=== PATIENT | female | born 1955 | race Caucasian/White ===

== ENCOUNTER 2019-12-18 13:49 | Observation (INO) ==
--- NOTE | 2019-12-18 14:41 | ERNOTE ---
Lower Extremity HPI - Narrative Date of Service: 12/18/19 - General Lower Extremities Pain: hip: left, other: bilateral - posterior head Time Seen by Provider: 12/18/19 14:06 Source: patient, family, EMS Exam Limitations: clinical condition - Immun/Allergies/Home Medications Immunizations: IMMUNIZATION HX Immunizations Up to Date Yes History of Influenza Vaccine No Hx Pneumococcal Vaccination No Allergies/Adverse Reactions: Allergies Allergy/AdvReac Type Severity Reaction Status Date / Time No Known Allergies Allergy Verified 12/18/19 18:29 Home Medications: HOME MEDICATIONS hydrOXYzine PAMOATE [Vistaril] 25 mg PO TID PRN #30 cap 05/02/19 [Last Taken Unknown] Albuterol Sulfate [Albuterol Sulfate 2.5 MG/0.5ML] 1 vial INHALATION Q4H PRN 09/18/19 [Last Taken Unknown] Cholecalciferol (Vitamin D3) [Vitamin D3] 1,000 units PO DAILY 09/18/19 [Last Taken Unknown] Lorazepam 0.5 mg PO PRN 09/18/19 [Last Taken Unknown] Metoprolol Tartrate [Lopressor] 12.5 mg PO DAILY 09/18/19 [Last Taken Unknown] Omeprazole 20 mg PO DAILY 09/18/19 [Last Taken Unknown] Ondansetron [Zofran Odt] 4 mg PO Q8H PRN 09/18/19 [Last Taken Unknown] Oxybutynin Chloride [Ditropan] 5 mg PO BID 09/18/19 [Last Taken Unknown] Sertraline HCl [Zoloft] 100 mg PO DAILY 09/18/19 [Last Taken Unknown] Topiramate [Topamax] 25 mg PO BID 09/18/19 [Last Taken Unknown] Baclofen 10 mg PO TID 11/25/19 [Last Taken Unknown] oxyCODONE HCL [Oxycodone HCl] 5 mg PO Q4H PRN 11/25/19 [Last Taken Unknown] Clindamycin HCl [Cleocin HCl] 300 mg PO QID 10 Days #40 cap 12/17/19 [Last Taken Unknown] Gabapentin 100 mg PO TID 12/18/19 [Last Taken Unknown] Mupirocin 1 gm TOPICAL BID 12/18/19 [Last Taken Unknown] SUMAtriptan SUCCINATE [Imitrex] 50 mg PO DAILY PRN 12/18/19 [Last Taken Unknown] Tamsulosin HCl [Flomax] 0.4 mg PO DAILY 12/18/19 [Last Taken Unknown] Zolpidem Tartrate 5 mg PO HS PRN 12/18/19 [Last Taken Unknown] - Pain Score Pain Score #1 Pain Score: 7 - History of Present Illness Narrative: The patient is a 64 year old male who presents for fall which occurred potentially around 0300 this am. There are associated symptoms of left hip pain and posterior head contusion. The patient reports pain to left hip and posterior head, 01/03. There are no alleviating factors. There are aggravating factors of activity. Previous treatments have included: none. The past medical history includes: COPD and HTN. The social history is positive for current tobacco use. The patient has had no known ill contacts. Patient states she believes sometime around 0200 or 0300 this am was outside to smoke and lost her balance falling and hitting head. Patient denies LOC but incident was unwitnessed. Patient has been having frequent recurrent falls. Daughter states she was attempting to contact patient to bathe her prepping for her upcoming surgery on at [facility] when the patient did not answer. Daughter states she had to contact the apartment landlord to allow her into the apartment. Daughter states she had difficulty waking her mother from sleep and was covered in blood from head wound. Daughter states that she has been aiding to manage patient's medication but after initial dosing patient takes them independently. Patient was evaluated yesterday for right posterior thigh cellulitis and treated with Clindamycin. Area appears improved with decreased overall erythema and indurated area. Patient remains to have two small pustules. Review of Systems - Review of Systems Constitutional: Present: fatigue, malaise. Absent: fever, chills EYE: Present: no symptoms reported ENT: Present: no symptoms reported Respiratory: Present: no symptoms reported. Absent: shortness of breath, cough Cardiology: Present: no symptoms reported. Absent: chest pain Gastrointestinal/Abdominal: Present: no symptoms reported. Absent: vomiting, diarrhea Genitourinary: Present: no symptoms reported. Absent: dysuria Musculoskeletal: Present: joint pain. Absent: neck pain Skin: Present: change in color Neurological: Present: weakness. Absent: dizziness/light-headedness All Other Systems: All systems neg except as marked Medical History (Last Reviewed 12/18/19 @ 14:23 by SHANTEL Ash) COPD (chronic obstructive pulmonary disease) HTN (hypertension) History of shoulder fracture Surgical History: Surgical History (Last Reviewed 12/18/19 @ 14:23 by SHANTEL Ash) History of hip replacement, total Hx of hysterectomy Family History: Family History (Last Reviewed 12/18/19 @ 14:23 by SHANTEL Ash) Other No pertinent family history Social History: (Last Reviewed 12/18/19 @ 14:23 by SHANTEL Ash) Tobacco: Smoking Status: Current every day smoker Smoking cigarettes per day: 20 Alcohol: alcohol intake frequency: holiday/special occasion Substance Use: substance use type: marijuana details: Medical use Physical Exam - Physical Exam General Appearance: Present: wd/wn, alert, moderate distress, sleeping/easy to arouse - sedate consistent with medication administered by EMS [employer] Head Exam: Present: lacerations - 4cm linear vertical laceration to posterior head, patient has had previous open laceration to same area from recent falls, tenderness Eye Exam: Normal inspection: bilateral, PERRL: bilateral, EOMI: bilateral Ears, Nose, Throat: Present: dry mucous membranes Neck: Present: normal inspection, nontender, full range of motion Respiratory: Present: no respiratory distress, normal breath sounds, no accessory muscle use, chest nontender, lungs clear Cardiovascular/Chest: Present: regular rate, rhythm, no murmur Peripheral Pulses: N=norm/S=strong/W=weak/B=bound/A=absent: Dorsalis-pedis (R): Normal, Dorsalis-pedis (L): Normal Gastrointestinal/Abdominal: Present: normal bowel sounds, nontender, nondistended, soft, no organomegaly Extremity Exam: Present: decreased range of motion - left hip, abnormal angulation with shortening and internal rotation , bony tenderness - left hip, other - chronic dislocation to left hip. Absent: extremity edema Neurological Exam: Present: alert, oriented - x3, normal mood/affect, no motor/sensory deficits, disoriented to situation - disoriented or difficult to recall timeframe of events Skin Exam: Present: normal color, warm/dry, other - erythema which is court interpreter pink from yesterday to right posterior thigh, area of induration decreased (3 x 3 cm) two pustules Progress - Date and Time Seen: Date and Time: 12/18/19 15:49 Attempt to contact [facility] to facilitate follow up care and inform patients orthopedic surgeon regarding recent falls as well as antibiotic treatment associated with recent cellulitis. Do not feel that repeat labs are necessary at this time due to patients evaluation yesterday with improvement to cellulitis on exam and patient having decreased focal pain to right posterior thigh. Patient also remains afebrile and normotensive. 12/18/19 15:[address] Amador Su. Does not feel that they have any options for admission at [facility] for preop and doctor has been updated regarding CT head findings, patient's frequent falls and cellulitis treatment. Discussed case with Ani Moreno, case management, will follow up with patient's daughter and notify of plan of care. 12/18/19 16:10 Patient previously had [facility] care but patient was discharged last week. Will discuss with daughter regarding care until surgery at [facility] is scheduled on . 12/18/19 16:52 Will admit for observation due to abnormal CT findings with frequent falls and head trauma for continued monitoring and neuro checks to ensure no decline. Will also continue treatment for right posterior thigh cellulitis. 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 Daughter states she will pick patient up and stay with her tomorrow for surgery . Discussed case with and ok with plan. - Results and Orders Patient's Lab Results:: I have reviewed the patient's lab results. - Vital Signs Patient's Vital Signs:: I have reviewed the patient's vital signs. Vital Signs: Vital Signs 12/18/19 13:56 Temperature 37.4 C Pulse Rate 75 Respiratory Rate 18 Blood Pressure 107/69 O2 Sat by Pulse Oximetry 99 - X-Ray X-Ray #1 X-Ray: hip Interpretation: Reviewed by me X-ray Comments: IMPRESSION: 1. DIFFUSE OSTEOPENIA. 2. NO ACUTE OSSEOUS ABNORMALITY INVOLVING THE AP PELVIS. 3. PREVIOUS LEFT HIP REPLACEMENT WITH SUPERIOR DISLOCATION OF THE METALLIC FEMORAL HEAD Electronically signed by Hermilo Yancey M.D.. - CT/Ultrasound CT/Ultrasound Narrative: IMPRESSION: 1. NO ACUTE INTRACRANIAL PROCESS 2. 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 NEUROLOGY FOLLOW-UP RECOMMENDED. Electronically signed by Hermilo Yancey M.D.. - Progress/Reassessment Chief Complaint: Hip Pain/Injury Departure Clinical Impression: Frequent falls Head injury due to trauma Qualifiers: Encounter type: initial encounter Qualified Code(s): S09.90XA - Unspecified injury of head, initial encounter Closed anterior dislocation of left hip Qualifiers: Encounter type: subsequent encounter Qualified Code(s): S73.035D - Other anterior dislocation of left hip, subsequent encounter Cellulitis Qualifiers: Site of cellulitis: extremity Site of cellulitis of extremity: lower extremity Laterality: right Qualified Code(s): L03.115 - Cellulitis of right lower limb - Departure Disposition: Still a patient Condition: Stable
[2019-12-18] MEDS ORDERED: CLINDAMYCIN HCL 150 MG CAPSULE PO SCH (17:45)
--- NOTE | 2019-12-18 18:03 | HP ---
Chief Complaint - Chief Complaint Date of Service: 12/18/19 Time of Service: 16:56 Chief Complaint: Fall, left hip pain History of Present Illness: 64-year-old female with a past medical history of COPD, hypertension, left total hip replacement, hysterectomy, shoulder fracture presents from home with recurrent falls. She states early this morning she was outside smoking when she lost her balance fell and hit her head. Denied loss of consciousness the fall was not witnessed. Patient is due for a left hip revision on 12/20/2019. The patient lives alone. Of note patient was also seen in the ER yesterday for right posterior thigh cellulitis and was started on clindamycin. Per the ER provider the area looks better with improved erythema and induration. Patient will be admitted for observation with plans to be discharged tomorrow to her daughter who will drive her up to [place] for the planned procedure and preop COVID testing. 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 Hip x-ray showed diffuse osteopenia, previous left hip replacement with superior dislocation of the metallic femoral head. Medical History (Last Reviewed 12/18/19 @ 14:23 by SHANTEL Ash) COPD (chronic obstructive pulmonary disease) HTN (hypertension) History of shoulder fracture Surgical History: Surgical History (Last Reviewed 12/18/19 @ 14:23 by SHANTEL Ash) History of hip replacement, total Hx of hysterectomy Family History: Family History (Last Reviewed 12/18/19 @ 14:23 by SHANTEL Ash) Other No pertinent family history Social History: (Last Reviewed 12/18/19 @ 14:23 by SHANTEL Ash) Tobacco: Smoking Status: Current every day smoker Smoking cigarettes per day: 20 Alcohol: alcohol intake frequency: holiday/special occasion Substance Use: substance use type: marijuana details: Medical use Review Of Systems (GEN) - Review of Systems Generalized/Overall Review: Absent: Fever EENTM: Absent: Throat Swelling Respiratory: Absent: Shortness of Breath Cardiac: Absent: Chest Pain, Edema Abdominal: Absent: Abdominal Pain Musculoskeletal: Present: Joint Pain - Left hip Misc: All systems neg except as marked Immunizations: IMMUNIZATION HX Immunizations Up to Date Yes History of Influenza Vaccine No Hx Pneumococcal Vaccination No Allergies/Adverse Reactions: Allergies Allergy/AdvReac Type Severity Reaction Status Date / Time No Known Allergies Allergy Verified 12/18/19 14:00 Home Medications: HOME MEDICATIONS hydrOXYzine PAMOATE [Vistaril] 25 mg PO TID PRN #30 cap 05/02/19 [Last Taken Unknown] Albuterol Sulfate [Albuterol Sulfate 2.5 MG/0.5ML] 1 vial INHALATION Q4H PRN 09/18/19 [Last Taken Unknown] Cholecalciferol (Vitamin D3) [Vitamin D3] 1,000 units PO DAILY 09/18/19 [Last Taken Unknown] Lorazepam 0.5 mg PO PRN 09/18/19 [Last Taken Unknown] Metoprolol Tartrate [Lopressor] 12.5 mg PO DAILY 09/18/19 [Last Taken Unknown] Omeprazole 20 mg PO DAILY 09/18/19 [Last Taken Unknown] Ondansetron [Zofran Odt] 4 mg PO Q8H PRN 09/18/19 [Last Taken Unknown] Oxybutynin Chloride [Ditropan] 5 mg PO BID 09/18/19 [Last Taken Unknown] Sertraline HCl [Zoloft] 100 mg PO DAILY 09/18/19 [Last Taken Unknown] Topiramate [Topamax] 25 mg PO BID 09/18/19 [Last Taken Unknown] Baclofen 10 mg PO TID 11/25/19 [Last Taken Unknown] oxyCODONE HCL [Oxycodone HCl] 5 mg PO Q4H PRN 11/25/19 [Last Taken Unknown] Clindamycin HCl [Cleocin HCl] 300 mg PO QID 10 Days #40 cap 12/17/19 [Last Taken Unknown] Gabapentin 100 mg PO TID 12/18/19 [Last Taken Unknown] Mupirocin 1 gm TOPICAL BID 12/18/19 [Last Taken Unknown] SUMAtriptan SUCCINATE [Imitrex] 50 mg PO DAILY PRN 12/18/19 [Last Taken Unknown] Tamsulosin HCl [Flomax] 0.4 mg PO DAILY 12/18/19 [Last Taken Unknown] Zolpidem Tartrate 5 mg PO HS PRN 12/18/19 [Last Taken Unknown] Exam - Exam Vital Signs: Vital Signs - Last Taken Temp 37.4 C 12/18/19 13:56 Pulse 80 12/18/19 17:19 Resp 15 12/18/19 17:19 BP 107/60 06/23/20 17:19 Pulse Ox 97 12/18/19 17:19 Constitutional: Present: Alert, No distress, Elderly, Thin and frail - Unkempt ENT Exam: Present: hearing grossly normal, moist mucous membranes, other - Laceration on posterior scalp, bloody matted hair Eye Exam: bilateral eye: PERRL, EOMI Neck: Present: non-tender, supple. Absent: lymphadenopathy (R), lymphadenopathy (L) Back Exam: Present: no CVA tenderness, no vertebral tenderness Respiratory: Present: chest non-tender, lungs clear, no respiratory distress, no accessory muscle use, No wheezing. Absent: crackles, rhonchi Cardiovascular/Chest: Present: normal peripheral pulses, regular rate, rhythm, no edema, no murmur Peripheral Pulses: dorsalis-pedis (R): 1+, dorsalis-pedis (L): 1+ Abdomen: Present: Normal bowel sounds, soft, nontender Extremity: Present: no pedal edema, other - Left hip externally rotated Skin Exam: Present: normal color, warm/dry Neurologic: Present: alert. Absent: normal mood/affect Appearance: Present: impaired insight Eye contact: Present: cooperative. Absent: good eye contact Thoughts: Absent: normal thought pattern, normal mood /affect Assessment/Plan - Narrative Narrative: 64-year-old female with a past medical history of COPD, hypertension, left total hip replacement, hysterectomy, shoulder fracture presents from home with recurrent falls. She states early this morning she was outside smoking when she lost her balance fell and hit her head. Denied loss of consciousness the fall was not witnessed. Patient is due for a left hip revision on 12/20/2019. The patient lives alone. Of note patient was also seen in the ER yesterday for right posterior thigh cellulitis and was started on clindamycin. Per the ER provider the area looks better with improved erythema and induration. Patient will be admitted for observation with plans to be discharged tomorrow to her daughter who will drive her up to [place] for the planned procedure and preop COVID testing. 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 Hip x-ray showed diffuse osteopenia, previous left hip replacement with superior dislocation of the metallic femoral head. Plan #1 continue with pain management, resume home regimen of oxycodone #2 resume home medications for comorbidities #3 fall precautions #4 neuro checks - Assessment/Plan (1) Laceration of scalp with delay in treatment Problem: Acute (2) Closed dislocation of left hip Problem: Acute Qualifiers: (3) Frequent falls Problem: Acute (4) Dislocation of internal left hip prosthesis, initial encounter Problem: Acute
[2019-12-18] MEDS ORDERED: ALBUTEROL SULFATE 2.5 MG/0.5 ML VIAL.NEB IH PRN (18:19)
[2019-12-18] MEDS ORDERED: hydrOXYzine PAMOATE 25 MG CAPSULE PO PRN (18:19)
[2019-12-18] MEDS ORDERED: oxyCODONE HCL 5 MG TABLET PO PRN (18:21)
[2019-12-18] MEDS ORDERED: BACLOFEN 10 MG TABLET PO SCH (18:45)
[2019-12-18] MEDS ORDERED: GABAPENTIN 100 MG CAPSULE PO SCH (18:45)
[2019-12-18 20:55] VITALS: BP 127/68
[2019-12-18] MEDS ORDERED: OXYBUTYNIN CHLORIDE 5 MG TABLET PO SCH (21:00)
[2019-12-19] MEDS ORDERED: PANTOPRAZOLE SODIUM 40 MG TABLET.EC PO SCH (07:00)
[2019-12-19] MEDS ORDERED: METOPROLOL TARTRATE 25 MG TABLET PO SCH (09:00)
[2019-12-19] MEDS ORDERED: SERTRALINE HCL 50 MG TABLET PO SCH (09:00)
[2019-12-19] MEDS ORDERED: TAMSULOSIN HCL 0.4 MG CAP.SR.24H PO SCH (09:00)
--- NOTE | 2019-12-20 15:49 | DS ---
(1) Laceration of scalp with delay in treatment Problem: Acute (2) Closed dislocation of left hip Problem: Acute Qualifiers: (3) Frequent falls Problem: Acute (4) Dislocation of internal left hip prosthesis, initial encounter Problem: Acute Hospital Course: 64-year-old female with a past medical history of COPD, hypertension, left total hip replacement, hysterectomy, shoulder fracture presents from home with recurrent falls. She states early this morning she was outside smoking when she lost her balance fell and hit her head. Denied loss of consciousness the fall was not witnessed. Patient is due for a left hip revision on 12/20/2019. The patient lives alone. Of note patient was also seen in the ER yesterday for right posterior thigh cellulitis and was started on clindamycin. Per the ER provider the area looks better with improved erythema and induration. Patient will be admitted for observation with plans to be discharged tomorrow to her daughter who will drive her up to [place] for the planned procedure and preop COVID testing. 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 Hip x-ray showed diffuse osteopenia, previous left hip replacement with superior dislocation of the metallic femoral head. Patient left AGAINST MEDICAL ADVICE soon after admission. She stated that 1 of her daughters had attempted suicide and she had to leave. Patient left on December 18, 2019. Procedures Performed: none Discharge Location: Home Disposition: Against medical advice Condition: Stable Discharge Activity: Activity as tolerated Discharge Diet: General/regular food Complete Home Medications List: Complete Home Medication List: hydrOXYzine PAMOATE [Vistaril] 25 mg PO TID PRN #30 cap 05/02/19 Albuterol Sulfate [Albuterol Sulfate 2.5 MG/0.5ML] 1 vial INHALATION Q4H PRN 09/18/19 Cholecalciferol (Vitamin D3) [Vitamin D3] 1,000 units PO DAILY 09/18/19 Lorazepam 0.5 mg PO PRN 09/18/19 Metoprolol Tartrate [Lopressor] 12.5 mg PO DAILY 09/18/19 Omeprazole 20 mg PO DAILY 09/18/19 Ondansetron [Zofran Odt] 4 mg PO Q8H PRN 09/18/19 Oxybutynin Chloride [Ditropan] 5 mg PO BID 09/18/19 Sertraline HCl [Zoloft] 100 mg PO DAILY 09/18/19 Topiramate [Topamax] 25 mg PO BID 09/18/19 Baclofen 10 mg PO TID 11/25/19 oxyCODONE HCL [Oxycodone HCl] 5 mg PO Q4H PRN 11/25/19 Clindamycin HCl [Cleocin HCl] 300 mg PO QID 10 Days #40 cap 12/17/19 Gabapentin 100 mg PO TID 12/18/19 Mupirocin 1 gm TOPICAL BID 12/18/19 SUMAtriptan SUCCINATE [Imitrex] 50 mg PO DAILY PRN 12/18/19 Tamsulosin HCl [Flomax] 0.4 mg PO DAILY 12/18/19 Zolpidem Tartrate 5 mg PO HS PRN 12/18/19
== END 2019-12-18 18:45 | disposition left against medical advice (07) ==
LOC: MS 13:49 → ER 13:49 → MS 18:15
PROVIDERS: ADMIT Internal Medicine; ATTEND Internal Medicine
DX: M24.452 Recurrent dislocation, left hip; W18.30XA Fall on same level, unspecified, initial encounter; L03.115 Cellulitis of right lower limb; Z53.29 Procedure and treatment not carried out because of patient's decision for other reasons; S01.01XA Laceration without foreign body of scalp, initial encounter
CPT/HCPCS: 70450; 73502; 99284; 99285